=== PATIENT | female | born 1960 | race African-American/Black ===

== ENCOUNTER 2022-06-13 15:43 | Emergency (ER) | payer SELFPAY ==
[~2022-06-13] VITALS: Ht 152.4 cm; Wt 127.0 kg
[~2022-06-13 15:43] MED LIST: AMOXICILLIN500 MG PO; CRESTOR20 MG PO; HYDROCHLOROT25 MG PO; LOTREL1 CA2 OR; LOTREL1 CA2 PO; METO50TA52 OR; METOPROL TAR50 MG PO; METOPROLOL TART50 MG PO; METOPROLOL50 MG OR
[2022-06-13 15:59] VITALS: BP 161/92
[2022-06-13 17:12] LABS: HEMATOCRIT 35.6 % (37.0-47.0); HEMOGLOBIN 10.9 g/dl (12.0-16.0); IMMATURE GRANULOCYTES 0.3 % (0.0-5.0); MEAN CELL VOLUME 85.6 fL CALC (80.0-100.0); MEAN CORPUSCULAR HGB 26.2 pG CALC (26.0-32.0); MEAN CORPUSCULAR HGB CONC 30.6 g/dL CAL (32.0-36.0); NEUT# 4.54 thou/uL (2.00-7.15); RED BLOOD COUNT 4.16 mill/uL (4.20-5.60)
[2022-06-13 17:27] LABS: ALBUMIN 4.6 g/dL (3.2-5.0); ALKALINE PHOSPHATASE 70 u/l (38-126); BILIRUBIN, TOTAL 0.3 mg/dL (0.0-1.4); BUN 19 mg/dL (8-23); BUN/CREATININE RATIO 23 (12-20 (CALC)); CHLORIDE 101 mmol/l (95-108); CREATININE 0.8 mg/dL (0.5-1.0); GFR FOR AFR.AMER. > 60 ML/MIN (>=60 (CALC)); GFR OTHER RACES > 60 ML/MIN (>=60 (CALC)); SGOT/AST 28 u/l (9-36); TOTAL PROTEIN 9.2 g/dL (6.3-8.2)
[2022-06-13 17:29] LABS: ANION GAP 20 (6-22 (CALC)); CARBON DIOXIDE 18 mmol/l (22-30); POTASSIUM 3.3 mmol/l (3.5-5.1); SODIUM 136 mmol/l (137-146)
[2022-06-13 18:37] VITALS: BP 161/92
== END 2022-06-13 18:47 | disposition home or self-care (01) | DRG 312 ==
LOC: ED 15:43
PROVIDERS: Family Medicine
DX: R55 Syncope and collapse (principal); I10 Essential (primary) hypertension; E66.9 Obesity, unspecified

== ENCOUNTER 2024-05-16 18:29 | Observation (INO) | payer SELFPAY ==
[2024-05-16] VITALS (11 sets, daily range): BP systolic 81–220; BP diastolic 44–116
[~2024-05-16] VITALS: Ht 152.4 cm; Wt 116.0 kg
[2024-05-16 19:26] LABS: BASO% 0.2 % (0-3); EOS% 1.4 % (0-8); HEMATOCRIT 33.8 % (37.0-47.0); HEMOGLOBIN 9.8 g/dl (12.0-16.0); IMMATURE GRANULOCYTES 0.2 % (0.0-5.0); LYMPH% 45.2 % (15-41); MEAN CORPUSCULAR HGB 21.6 pG CALC (26.0-32.0); MONO% 6.2 % (2-13); NEUT# 6.71 thou/uL (2.00-7.15); NEUT% 46.8 % (42-76); RED BLOOD COUNT 4.53 mill/uL (4.20-5.60); RED CELL DISTRI WIDTH 16.8 % (11.5-15.5)
[2024-05-16 19:46] LABS: ALBUMIN 4.8 g/dL (3.2-5.0); ALKALINE PHOSPHATASE 82 u/l (38-126); ANION GAP 17 (6-22 (CALC)); BUN 16 mg/dL (8-23); BUN/CREATININE RATIO 18 (12-20 (CALC)); CARBON DIOXIDE 19 mmol/l (22-30); CHLORIDE 102 mmol/l (95-108); CREATININE 0.9 mg/dL (0.5-1.0); ESTIMATED GFR 72 ML/MIN (>=90 (CALC)); MAGNESIUM 1.9 mg/dL (1.6-2.3); POTASSIUM 3.2 mmol/l (3.5-5.1); SGOT/AST 38 u/l (9-36); SODIUM 134 mmol/l (137-146); TOTAL PROTEIN 9.5 g/dL (6.3-8.2)
[2024-05-16 19:47] LABS: BILIRUBIN, TOTAL 0.7 mg/dL (0.02-1.3)
[2024-05-16 19:49] LABS: MEAN CELL VOLUME 74.6 fL CALC (80.0-100.0)
[2024-05-16] MEDS ORDERED: POTASSIUM CHLORIDE 20 MEQ/TAB PO ONE ×2 (20:00→21:00)
[2024-05-16] MEDS ORDERED: LABETALOL HCL 20 MG/ 4 ML CARTRG IV ONE (20:00)
[2024-05-16] MEDS ORDERED: SODIUM CHLORIDE 0.9% 1,000 ML IV ONE ×2 (20:00→20:55)
[2024-05-16] MEDS ORDERED: MAGNESIUM OXIDE 400 MG/TAB PO ONE (21:00)
[2024-05-16] MEDS ORDERED: hydrALAZINE HCL 20 MG/ML VIAL(1 ML) IV ONE (21:40)
[2024-05-16 22:24] LABS: URINE BILIRUBIN - DIPSTICK Negative (NEGATIVE); URINE BLOOD DIPSTICK Negative (NEGATIVE); URINE GLUCOSE - DIPSTICK Negative (NEGATIVE); URINE KETONE Negative (NEGATIVE); URINE LEUK ESTERASE Negative (NEGATIVE); URINE NITRITE - DIPSTICK Negative (Negative); URINE PH 5.5 (4.5-8.0); URINE PROTEIN - DIPSTICK 100 mg/dL (NEG-TRACE); URINE SPECIFIC GRAVITY <=1.005; URINE UROBILINOGEN - DIPSTICK 0.2 E.U./dL (0.2)
[2024-05-16 22:28] LABS: URINE COLOR Yellow
[2024-05-16 22:32] LABS: URINE RBC 0-2 RBC/hpf (0-5); URINE WBC 0-2 WBC/hpf (0-5)
[2024-05-16 22:33] LABS: URINE BACTERIA RARE hpf; URINE SQUAMOUS EPITHELIAL CELL FEW EPI/hpf (0-FEW)
[2024-05-16] MEDS ORDERED: ALUM & MAG HYDROX-SIMETHICONE 30 ML PO PRN (23:35)
[2024-05-16] MEDS ORDERED: ONDANSETRON HCl 4 MG/2 ML SDV IV PRN (23:35)
[2024-05-16] MEDS ORDERED: ONDANSETRON 4 MG/TAB ODT PO PRN (23:35)
[2024-05-16] MEDS ORDERED: IBUPROFEN 800 MG/TAB PO PRN (23:35)
[2024-05-16] MEDS ORDERED: FAMOTIDINE 10MG/ML 2ML SDV IV PRN (23:35)
[2024-05-16] MEDS ORDERED: MAGNESIUM HYDROXIDE 30 ML UDC PO PRN (23:35)
[2024-05-17] VITALS (11 sets, daily range): BP systolic 142–196; BP diastolic 63–100
[2024-05-17] MEDS ORDERED: hydrALAZINE HCL 20 MG/ML VIAL(1 ML) IV SCH (02:15)
[2024-05-17] MEDS ORDERED: LABETALOL HCL 20 MG/ 4 ML CARTRG IV SCH (03:15)
[2024-05-17 06:23] LABS: BASO% 0.3 % (0-3); EOS% 0.1 % (0-8); HEMATOCRIT 29.6 % (37.0-47.0); IMMATURE GRANULOCYTES 0.3 % (0.0-5.0); LYMPH% 17.5 % (15-41); MEAN CELL VOLUME 74.4 fL CALC (80.0-100.0); MEAN CORPUSCULAR HGB 22.6 pG CALC (26.0-32.0); MEAN CORPUSCULAR HGB CONC 30.4 g/dL CAL (32.0-36.0); MONO% 7.8 % (2-13); NEUT# 8.45 thou/uL (2.00-7.15); RED BLOOD COUNT 3.98 mill/uL (4.20-5.60)
[2024-05-17 06:30] LABS: INTERNATIONAL NORMALIZED RATIO 1.2 RATIO (0.7-1.3)
[2024-05-17 06:33] LABS: BILIRUBIN, TOTAL 0.6 mg/dL (0.02-1.3); CREATININE 0.7 mg/dL (0.5-1.0); MAGNESIUM 1.9 mg/dL (1.6-2.3); PROTHROMBIN TIME 11.3 SECONDS (9.0-12.5); TOTAL PROTEIN 7.7 g/dL (6.3-8.2)
[2024-05-17 06:34] LABS: POTASSIUM 4.2 mmol/l (3.5-5.1)
[2024-05-17] MEDS ORDERED: amLODIPine BESYLATE 5 MG/TAB PO SCH (09:00)
[2024-05-17] MEDS ORDERED: PANTOPRAZOLE SODIUM Sesquihydr 40 MG/TAB PO SCH (11:00)
[2024-05-17] MEDS ORDERED: LOSARTAN Potassium 50 MG/TAB PO SCH (11:30)
[2024-05-17] MEDS ORDERED: IRON DEXTRAN 100 MG/2 ML AMP IV SCH (14:30)
[2024-05-18] VITALS (9 sets, daily range): BP systolic 131–200; BP diastolic 61–118
[2024-05-18 05:27] LABS: BASO% 0.1 % (0-3); EOS% 1.6 % (0-8); HEMATOCRIT 27.5 % (37.0-47.0); HEMOGLOBIN 8.3 g/dl (12.0-16.0); IMMATURE GRANULOCYTES 0.5 % (0.0-5.0); LYMPH% 43.5 % (15-41); MEAN CELL VOLUME 76.6 fL CALC (80.0-100.0); MEAN CORPUSCULAR HGB 23.1 pG CALC (26.0-32.0); MEAN CORPUSCULAR HGB CONC 30.2 g/dL CAL (32.0-36.0); MONO% 7.3 % (2-13); NEUT# 5.04 thou/uL (2.00-7.15); RED BLOOD COUNT 3.59 mill/uL (4.20-5.60); RED CELL DISTRI WIDTH 17.4 % (11.5-15.5)
[2024-05-18 05:38] LABS: ALBUMIN 3.8 g/dL (3.2-5.0); CREATININE 0.8 mg/dL (0.5-1.0); MAGNESIUM 2.3 mg/dL (1.6-2.3); POTASSIUM 4.3 mmol/l (3.5-5.1); TOTAL PROTEIN 7.4 g/dL (6.3-8.2)
[2024-05-18 05:47] LABS: BILIRUBIN, TOTAL 0.9 mg/dL (0.02-1.3)
[2024-05-18] MEDS ORDERED: Polyethylene Glycol 3350 17 GM/PKT PO PRN (07:45)
[2024-05-18] MEDS ORDERED: IRON DEXTRAN 100 MG/2 ML AMP IV ONE (08:30)
[2024-05-18] MEDS ORDERED: PANTOPRAZOLE SO40 M1 PO (09:55)
[2024-05-18] MEDS ORDERED: IRON325 M1 PO (09:57)
[2024-05-18] MEDS ORDERED: AMLODIPINE BESYL5 MG PO (09:57)
[2024-05-18] MEDS ORDERED: LOSARTAN POTASS50 MG PO (09:57)
[2024-05-18] MEDS ORDERED: SODIUM CHLORIDE 0.9% IV SCH (10:00)
[2024-05-18] MEDS ORDERED: IRON DEXTRAN IV SCH (10:00)
[2024-05-18] MEDS ORDERED: hydrALAZINE HCL 20 MG/ML VIAL(1 ML) IV PRN (12:00)
== END 2024-05-18 15:02 | disposition home or self-care (01) | DRG 312 ==
LOC: ED 18:29 → ED-I 23:13 → ED 23:34 → MS2 23:35
PROVIDERS: Nurse Practitioner; Nurse Practitioner Family; ADMIT Internal Medicine; ATTEND Internal Medicine
DX: R55 Syncope and collapse (principal); D50.9 Iron deficiency anemia, unspecified; E87.6 Hypokalemia; E87.8 Other disorders of electrolyte and fluid balance, not elsewhere classified; I10 Essential (primary) hypertension; E66.9 Obesity, unspecified; F17.220 Nicotine dependence, chewing tobacco, uncomplicated; T46.5X6A Underdosing of other antihypertensive drugs, initial encounter; Z91.120 Patient's intentional underdosing of medication regimen due to financial hardship; Z91.190 Patient's noncompliance with other medical treatment and regimen due to financial hardship
CPT/HCPCS: G0378